=== PATIENT | female | born 1995 | race Two or more races ===

== ENCOUNTER 2017-11-19 00:36 | Emergency (ER) | payer OTHER ==
[~2017-11-19] VITALS: Ht 162.6 cm; Wt 59.0 kg
--- NOTE | 2017-11-19 00:55 | NUR ---
PT AMBULATORY TO ER BED 4. PT BIB FATHER C/O N/V/D X 2 DAYS. VSS/RESP EVEN UNLABORED/NAD NOTED/SKIN WARM AND DRY/AOX4. AWAITING MD REYES.
--- NOTE | 2017-11-19 01:00 | NUR ---
URINE SPECIMEN OBTAINED AND SENT TO THE LAB.
[2017-11-19] MEDS ORDERED: ONDANSETRON HCL/PF 4 MG/2 ML VIAL ONE (01:10)
--- NOTE | 2017-11-19 01:10 | NUR ---
20G IV TO L AC X 1 ATTEMPT USING ASEPTIC TECH, BLOOD HANDED OVER TO LAB AT BEDSIDE. IV FLUSHES EASILY, NO S/S INFILTRATION NOTED.
[2017-11-19 01:22] LABS: BASOPHILS % (AUTO) 0.2 % (0.0-2.0); EOSINOPHILS # (AUTO) 0.2 /CMM (0.0-0.7); HEMATOCRIT 41 % (33-45); HEMOGLOBIN 14.1 g/dL (11.5-14.8); LYMPHOCYTES # (AUTO) 2.2 /CMM (0.8-4.8); LYMPHOCYTES % (AUTO) 19.1 % (20.0-44.0); MEAN CORPUSCULAR HEMOGLOBIN 29 PG (26.0-33.0); MEAN CORPUSCULAR HGB CONC 34 g/dl (31.0-36.0); MEAN CORPUSCULAR VOLUME 86 fL (82-100); MONOCYTES # (AUTO) 0.6 /CMM (0.1-1.30); MONOCYTES % (AUTO) 4.9 % (2.0-12.0); NEUTROPHILS # (AUTO) 8.5 /CMM (1.8-8.9); NEUTROPHILS % (AUTO) 73.8 % (43.0-81.0); PLATELET COUNT (AUTO) 241 /CMM (150-450); RDW COEFFICIENT OF VARIATION 13.2 (11.5-15.0); WHITE BLOOD COUNT (AUTO) 11.6 K/uL (4.3-11.0)
[2017-11-19 01:24] LABS: APPEARANCE,URINE CLEAR (CLEAR); BILIRUBIN,URINE NEGATIVE (NEGATIVE); BLOOD, URINE TRACE Ery/uL (NEGATIVE); COLOR,URINE YELLOW (YELLOW); KETONES,URINE NEGATIVE (NEGATIVE); LEUKOCYTE ESTERASE ,URINE NEGATIVE (NEGATIVE); NITRITE, URINE NEGATIVE (NEGATIVE); PROTEIN,URINE NEGATIVE (NEGATIVE); UGLUCOSE NEGATIVE (NEGATIVE); UROBILINOGEN,URINE 0.2 EU/dL (0.2)
[2017-11-19] MEDS ORDERED: IV NS 0.9% 1,000 ML BAG IV ONE (01:30)
[2017-11-19] MEDS ORDERED: ONDANSETRON HCL/PF 4 MG/2 ML VIAL IVP ONE (01:30)
[2017-11-19 01:33] LABS: CALCIUM, SERUM 9.9 mg/dL (8.5-10.1); CREATININE 0.8 mg/dL (0.6-1.3); POTASSIUM 3.6 mmol/L (3.5-5.1)
[2017-11-19 01:35] LABS: BACTERIA,URINE Many /HPF (None Seen); WBC,URINE 0-2 /HPF (0-3)
[2017-11-19 01:36] LABS: SQUAMOUS EPITHELIAL CELL,UR Many /HPF (None Seen)
[2017-11-19 01:39] LABS: ALBUMIN 4.6 g/dL (3.4-5.0); BILIRUBIN,DIRECT 0.3 mg/dL (0.0-0.2); BILIRUBIN,TOTAL 1.4 mg/dL (0.2-1.0); TOTAL PROTEIN, SERUM 8.1 g/dL (6.4-8.2)
--- NOTE | 2017-11-19 02:33 | NUR ---
IV removed. Catheter intact and site benign. Pressure and 4x4 applied to site. No bleeding noted. Patient discharged to home in stable condition. Written and verbal after care instructions given. Patient verbalizes understanding of instruction. Patient ambulatory with a steady gait.
[2017-11-19 02:36] VITALS: BP 108/64
== END 2017-11-19 02:36 | disposition home or self-care (01) ==
LOC: ER 00:36
DX: K52.9 Noninfective gastroenteritis and colitis, unspecified (principal)
CPT/HCPCS: 36415; 80048-TC; 80076-TC; 81000-TC; 83690-TC; 85025-TC; 87086-TC; A4606; J2405; J7030; Z7610

== ENCOUNTER → 2018-07-02 | Emergency (ER) | payer OTHER ==
--- NOTE | 2018-07-02 10:37 | NUR ---
CALLED IN WAITING ROOM. NO ANSWER.
== END | disposition left against medical advice (07) ==
LOC: ER 09:52
DX: Z53.21 Procedure and treatment not carried out due to patient leaving prior to being seen by health care provider (principal)

== ENCOUNTER 2020-06-18 07:25 | Emergency (ER) | payer OTHER ==
[~2020-06-18] VITALS: Ht 167.6 cm; Wt 58.1 kg
[2020-06-18 07:40] VITALS: BP 104/78
[2020-06-18] MEDS ORDERED: ACETAMINOPHEN ES 500 MG TABLET ONE (08:00)
--- NOTE | 2020-06-18 08:01 | NUR ---
BEAN DUMPER AT BEDSIDE
[2020-06-18] MEDS ORDERED: ACETAMINOPHEN ES 500 MG TABLET PO ONE (09:00)
== END 2020-06-18 08:51 | disposition home or self-care (01) ==
LOC: ER 07:28
DX: S93.491A Sprain of other ligament of right ankle, initial encounter (principal); X50.1XXA Overexertion from prolonged static or awkward postures, initial encounter; Y93.89 Activity, other specified; Y92.89 Other specified places as the place of occurrence of the external cause; Y99.8 Other external cause status
CPT/HCPCS: 73610-TC